=== PATIENT | female | born 1995 ===

== ENCOUNTER 2025-05-10 10:44 | Emergency (ER) | payer BC, SELFPAY ==
[2025-05-10 14:41] LABS: #Basophils 0.03 10x3/uL (0.0-0.2); #Eosinophils Less than 0.03 10x3/uL (0.0-0.7); #Monocytes 0.40 10x3/uL (0.11-0.59); #Neutrophils 5.63 10x3/uL (1.40-6.50); %Basophils 0.4 % (0.0-1.0); %Eosinophils 0.0 % (0.0-10.0); %Lymphocytes 22.9 % (21.0-51.0); %Monocytes 5.1 % (0.0-10.0); %Neutrophils 71.2 % (42.0-75.0); Hematocrit 40.8 % (36.0-47.0); Hemoglobin 13.0 g/dL (12.0-16.0); Mean Corpuscular Hemoglobin 28.6 pg (27.0-31.0); Mean Corpuscular Volume 89.7 fL (78.0-98.0); Platelet Count 261 10x3/uL (130-400); Red Blood Cell (RBC) Count 4.55 mill/uL (4.20-5.40); White Blood Cell (WBC) Count 7.90 10x3/uL (4.8-10.8)
[2025-05-10 15:01] LABS: ALT (SGPT) 10 U/L (Less than 34); AST (SGOT) 20 U/L (11-34); Albumin 4.9 g/dL (3.1-4.5); Alkaline Phosphatase 86 U/L (40-110); Anion Gap 18 mmol/L (10-20); BUN (Urea Nitrogen) 7 mg/dL (7.0-18.7); Bilirubin, Total 0.6 mg/dL (0.3-1.2); Calc. Creatinine Clearance 0 mL/min (70-130); Calcium 9.7 mg/dL (7.8-10.44); Carbon Dioxide 18 mmol/L (22-29); Chloride 101 mmol/L (98-107); Globulin 3.9 g/dL (2.4-3.5); Glucose 73 mg/dL (70-105); Potassium 4.1 mmol/L (3.5-5.1); Sodium 133 mmol/L (136-145)
[2025-05-10 15:58] LABS: Cocaine Metabolite Screen Negative (Negative); THC/Cannabinoid Screen Negative (Negative); Tricyclic Screen Negative (Negative)
[2025-05-10] MEDS ORDERED: Ziprasidone 20 MG CAP ONE (18:55)
[2025-05-11] MEDS ORDERED: risperiDONE 1 MG TAB ONE (08:15)
[2025-05-11] MEDS ORDERED: OLANZapine 5 MG TAB ONE (08:15)
== END 2025-05-11 10:37 ==
LOC: EDBD 10:44 → ERS 10:44 → EEVIPCON 10:44 → ERS 05-11 10:37
DX: F23 Brief psychotic disorder (principal)
CPT/HCPCS: 70450; 80053; 80306; 85025